=== PATIENT | female | born 2000 | race American Indian/Alaskan Native ===

== ENCOUNTER 2022-01-30 01:22 | Emergency (ER) | payer SELFPAY ==
[2022-01-30 01:32] VITALS: BP 129/79
--- NOTE | 2022-01-30 02:16 | XRay Report ---
CHEST 2 VIEWS INDICATION / CLINICAL INFORMATION: CHEST PAIN. COMPARISON: None available. FINDINGS: SUPPORT DEVICES: None. HEART / MEDIASTINUM: Heart size and mediastinal contour appear within normal limits. LUNGS / PLEURA: No significant pulmonary or pleural abnormality. No pneumothorax. BONES: No significant osseous abnormality. ADDITIONAL FINDINGS: No significant additional findings. IMPRESSION: 1. No active cardiopulmonary disease. Signer Name: Phani Peace II, MD Signed: 01/30/2022 2:12 AM Workstation Name: [id number]
--- NOTE | 2022-02-01 13:49 | Electrocardiograph Report ---
[facility] Test Date: 2022-01-30 Test Time: 01:27:44 Pat Name: ANGELA VILLANUEVA Department: Room: Gender: [employer]: GLENROY : 2000 Requested By: ALFREDO DURHAM Order Number: [id number] Reading MD: Viki Daugherty Measurements Intervals [place] Rate: 68 P: 54 TX: 157 QRS: -12 QRSD: 88 T: 44 QT: 393 QTc: 419 Interpretive Statements Sinus rhythm Normal ECG No previous ECG available for comparison Electronically Signed On 02-01-2022 13:49:51 EDT by Viki Daugherty
== END 2022-01-30 01:40 | disposition left against medical advice (07) ==
LOC: ED 01:22
DX: R07.9 Chest pain, unspecified (principal); Z53.21 Procedure and treatment not carried out due to patient leaving prior to being seen by health care provider
CPT/HCPCS: 71046; 93005

== ENCOUNTER 2022-03-10 22:06 | Emergency (ER) | payer SELFPAY ==
[2022-03-10 22:31] VITALS: BP 114/80
== END 2022-03-11 01:24 | disposition left against medical advice (07) ==
LOC: ED 22:06
DX: F10.129 Alcohol abuse with intoxication, unspecified (principal); Z53.21 Procedure and treatment not carried out due to patient leaving prior to being seen by health care provider